=== PATIENT | female | born 1970 | race Caucasian/White ===

== ENCOUNTER 2017-03-08 06:08 | Emergency (ER) | payer MEDICAID ==
[2017-03-08 06:31] VITALS: BP 130/87
--- NOTE | 2017-03-08 07:21 | EDM.PDOC ---
ED HPI GENERAL MEDICAL PROBLEM - General Chief Complaint: General Stated Complaint: UNABLE TO SLEEP Time Seen by Provider: 03/08/17 07:01 Source of Information: Reports: Patient, Family, Old Records, RN Notes Reviewed History Limitations: Reports: No Limitations - History of Present Illness INITIAL COMMENTS - FREE TEXT/NARRATIVE: 46-year-old female presents emergency department today complaint of insomnia she states she has not been able to sleep for 30 days, she does have a extensive history of a variety medications that she has been on for sleep she does use benzodiazepines which she states they do not work like they used to and provide her no comfort. She follows with psychiatry out of [place] Dr. Singh has been on a variety of psychiatric medications as well suffers from posttraumatic stress disorder. Was recently started on prazosin she has taken 2 doses of this medication and states that she gets every side effect listed. Also of note during the interview she is drinking coffee Generalized Pain Score (Numeric/FACES): 2 - Related Data Allergies Allergy/AdvReac Type Severity Reaction Status Date / Time codeine Allergy Headache Verified 03/08/17 06:26 Home Meds: Home Meds Diazepam [Diazepam] 10 mg PO BEDTIME 10/23/13 [History] Hydrocortisone [Hydrocortisone] 1 appful TOP DAILY 10/23/13 [History] Ketoconazole [Nizoral 2% Shampoo] 1 applicful TOP DAILY 10/23/13 [History] clonazePAM [Clonazepam] 1 mg PO BID PRN 10/23/13 [History] Albuterol Sulfate [Proair Hfa] 1 - 2 puff IH Q4H PRN 06/19/14 [History] Prazosin HCl [Prazosin] 1 mg PO BEDTIME 03/08/17 [History] Past Medical History HEENT History: Reports: Allergic Rhinitis, Impaired Vision 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 Cardiovascular History: Reports: Arrhythmia, Heart Murmur, Other (See Below) Other Cardiovascular History: mitral valve prolapse syndrome Respiratory History: Reports: Asthma 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: Neurological History: Reports: Concussion, Migraines Psychiatric History: Reports: Panic Attack, Other (See Below) Other Psychiatric History: "break down", went to [facility], and stayed at [facility] Hematologic History: Reports: Anemia, Iron Deficiency Oncologic (Cancer) History: Reports: Other (See Below) Other Oncologic History: kidney cancer Dermatologic History: Reports: Psoriasis - Infectious Disease History Infectious Disease History: Reports: Chicken Pox, Influenza - Past Surgical History GI Surgical History: Reports: Colonoscopy Female Surgical History: Reports: Nephrectomy Other Oncologic Surgeries/Procedures: partial right nephrectomy Social & Family History - Tobacco Use Smoking Status *Q: Former Smoker Years of Tobacco use: 11 Used Tobacco, but Quit: Yes Month Tobacco Last Used: 20 yrs ago Second Hand Smoke Exposure: No - Caffeine Use Caffeine Use: Reports: Coffee - Alcohol Use Days Per Week of Alcohol Use: 4 Number of Drinks Per Day: 2 Total Drinks Per Week: 8 - Recreational Drug Use Recreational Drug Use: No Drug Use in Last 12 Months: No Recreational Drug Type: Reports: Marijuana/Hashish, Other (see below) Recreational Drug Use Frequency: Not Used In Over 1 Year ED ROS GENERAL - Review of Systems Review Of Systems: See Below Constitutional: Reports: Other (Insomnia) HEENT: Reports: No Symptoms Respiratory: Reports: No Symptoms Cardiovascular: Reports: No Symptoms GI/Abdominal: Reports: No Symptoms : Reports: No Symptoms ED EXAM, GENERAL - Physical Exam Exam: See Below Exam Limited By: No Limitations General Appearance: Alert, WD/WN, No Apparent Distress Respiratory/Chest: No Respiratory Distress Psychiatric: Normal Affect, Normal Mood, Other (She has an excuse for every medication that I propose every treatment that I propose only wants Ambien). No : Anxious, Depressed Mood, Flat Affect, Tearful Course - Vital Signs Last Recorded V/S: Last Vital Signs Temp 98.2 F 03/08/17 06:31 Pulse 95 03/08/17 06:31 Resp 20 03/08/17 06:31 BP 130/87 03/08/17 06:31 Pulse Ox 95 03/08/17 06:31 Departure - Departure Time of Disposition: 07:20 Disposition: Home, Self-Care 01 Condition: Fair Clinical Impression: Insomnia Qualifiers: Insomnia type: psychophysiologic Qualified Code(s): F51.04 - Psychophysiologic insomnia - Discharge Information Referrals: PCP,None [Primary Care Provider] - Additional Instructions: Use Ambien as needed for sleep please follow-up with your physician on Friday - Assessment/Plan Plan: Assessment Acuity = acute Site and laterality = insomnia Etiology = unclear etiology Manifestations = none none Location of injury = Home Lab values = [lists important lab values] Plan Granted prescription for 2 Ambien 5 mg 1 tab by mouth daily at bedtime, follow- up appointment with her psychiatrist on Friday Patient was in agreement with the plan all questions were answered, they were instructed to return to the emergency department or call for worsening symptoms. This note was dictated using [employer] voice recognition software please call with any questions.
== END 2017-03-08 07:40 | disposition home or self-care (01) ==
LOC: JP.ED 06:08
DX: F51.04 Psychophysiologic insomnia (principal); J45.909 Unspecified asthma, uncomplicated; Z79.899 Other long term (current) drug therapy; Z87.891 Personal history of nicotine dependence; Z88.5 Allergy status to narcotic agent
CPT/HCPCS: 99283

== ENCOUNTER 2019-09-19 18:31 | Emergency (ER) | payer MEDICAID ==
[2019-09-19 19:42] VITALS: BP 129/77; PULSE 16
--- NOTE | 2019-09-19 19:43 | EDM.PDOC ---
ED HPI GENERAL MEDICAL PROBLEM - General Chief Complaint: Genitourinary Problem Stated Complaint: BLADDER INFECTION Time Seen by Provider: 09/19/19 19:13 Source of Information: Reports: Patient History Limitations: Reports: No Limitations - History of Present Illness INITIAL COMMENTS - FREE TEXT/NARRATIVE: 49 y/o female with dysuria since this am. She denies fever, chills, N/v, or back pain. She has a history of UTIs. She is immunocompetent. 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 Hematologic History: Reports: Anemia, Iron Deficiency Oncologic (Cancer) History: Reports: Other (See Below) Other Oncologic History: kidney cancer Dermatologic History: Reports: Psoriasis - Infectious Disease History Infectious Disease History: Reports: Chicken Pox - Past Surgical History GI Surgical History: Reports: Colonoscopy Female Surgical History: Reports: Nephrectomy Other Oncologic Surgeries/Procedures: partial right nephrectomy Social & Family History - Tobacco Use Smoking Status *Q: Never Smoker - Caffeine Use Caffeine Use: Reports: Coffee ED ROS GENERAL - Review of Systems Review Of Systems: See Below Constitutional: Denies: Fever, Chills, Diaphoresis : Reports: Dysuria, Frequency Skin: Reports: No Symptoms ED EXAM, RENAL/ - Physical Exam Exam: See Below Exam Limited By: No Limitations General Appearance: Alert, WD/WN, No Apparent Distress Respiratory/Chest: No Respiratory Distress Cardiovascular: Regular Rate, Rhythm Neurological: Alert, Oriented Psychiatric: Normal Affect, Normal Mood Skin Exam: Warm, Dry Course - Vital Signs Text/Narrative:: She has a uncomplicated UTI. A UC is pending. She was started on SMZ/TMP for 7 days. Last Recorded V/S: Last Vital Signs Temp 36.6 C 09/19/19 19:34 Pulse 16 L 09/19/19 19:34 Resp 16 09/19/19 19:34 BP 129/77 09/19/19 19:34 Pulse Ox 97 09/19/19 19:34 - Orders/Labs/Meds Orders: Active Orders 24 hr Category Date Time Status CULTURE URINE [RM] Stat Lab 09/19/19 19:54 Ordered Labs: Laboratory Tests 09/19/19 Range/Units 19:20 Urine Color Yellow (YELLOW) Urine Appearance Slightly cloudy A (CLEAR) Urine pH 7.0 (5.0-8.0) Ur Specific [place] 1.025 (1.008-1.030) Urine Protein Negative (NEGATIVE) mg/dL Urine Glucose (UA) Negative (NEGATIVE) mg/dL Urine Ketones Negative (NEGATIVE) mg/dL Urine Occult Blood Large H (NEGATIVE) Urine Nitrite Positive H (NEGATIVE) Urine Bilirubin Negative (NEGATIVE) Urine Urobilinogen 0.2 (0.2-1.0) EU/dL Ur Leukocyte Esterase Large H (NEGATIVE) Urine RBC 10-20 H (0-5) Urine WBC 10-20 H (0-5) Ur Epithelial Cells Few Amorphous Sediment Many Urine Bacteria Moderate Urine Mucus Not seen Departure - Departure Time of Disposition: 19:55 Disposition: Home, Self-Care 01 Condition: Good Clinical Impression: Cystitis - Discharge Information Referrals: Sariah Tobias PA [Primary Care Provider] - Forms: ED Department Discharge Additional Instructions: start SMZ/TMP DS BID for 7 days. UC pending. Sepsis Event Note (ED) - Evaluation Sepsis Screening Result: No Definite Risk - Focused Exam Vital Signs: Vital Signs Temp Pulse Resp BP Pulse Ox 09/19/19 19:34 36.6 C 16 L 16 129/77 97 09/19/19 19:06 36.6 C 16 L 16 129/77 97 - My Orders Last 24 Hours: My Active Orders 09/19/19 19:54 CULTURE URINE [RM] Stat - Assessment/Plan Last 24 Hours: My Active Orders 09/19/19 19:54 CULTURE URINE [RM] Stat
[2019-09-19] MEDS ORDERED: Phenazopyridine 95 MG Tab ONE (20:05)
[2019-09-19] MEDS ORDERED: Phenazopyridine 95 MG Tab PO ONE (20:07)
== END 2019-09-19 20:10 | disposition home or self-care (01) ==
LOC: JP.ED 18:31
DX: N30.90 Cystitis, unspecified without hematuria (principal); J45.909 Unspecified asthma, uncomplicated; Z88.5 Allergy status to narcotic agent
CPT/HCPCS: 81001; 87086; 87088; 87186; 99283; A9270

== ENCOUNTER 2022-03-05 08:41 | Day surgery (SDC) | payer MEDICAID ==
[2022-03-05] MEDS ORDERED: Lactated Ringers 1,000 ML IV SCH (09:00)
[2022-03-05] MEDS ORDERED: Propofol 200 MG/20 ML SDV ONE (10:02)
[2022-03-05] MEDS ORDERED: fentaNYL 50 MCG/ML SDV ONE (10:05)
[2022-03-05] MEDS ORDERED: Midazolam 1 MG/ML 2 ML SDV ONE (10:05)
[2022-03-05 11:58] VITALS: PULSE 71
[2022-03-05 12:03] VITALS: BP 118/48
== END 2022-03-05 12:06 | disposition home or self-care (01) ==
LOC: JP.SDS 08:41
PROVIDERS: ATTEND Family Medicine
DX: Z12.11 Encounter for screening for malignant neoplasm of colon (principal); F43.10 Post-traumatic stress disorder, unspecified; F41.9 Anxiety disorder, unspecified; Z79.899 Other long term (current) drug therapy; Z88.5 Allergy status to narcotic agent
CPT/HCPCS: 45378; J2250; J2704; J3010; J7120

== ENCOUNTER 2023-04-25 05:02 | Emergency (ER) | payer MEDICAID, OTHER ==
[2023-04-25 05:28] VITALS: BP 144/86; PULSE 74
[2023-04-25] MEDS ORDERED: Baclofen 10 MG Tab PO ONE (06:00)
[2023-04-25] MEDS ORDERED: Ketorolac 30 MG/ML SDV IM ONE (06:01)
[2023-04-25] MEDS ORDERED: Acetaminophen/oxyCODONE 325-5 MG Tab PO ONE (06:01)
[2023-04-25] MEDS ORDERED: HYDROmorphone 0.5 MG/0.5 ML Syringe IM ONE (07:06)
== END 2023-04-25 07:48 | disposition home or self-care (01) ==
LOC: JP.ED 05:02
DX: M54.50 Low back pain, unspecified (principal); K21.9 Gastro-esophageal reflux disease without esophagitis; J45.909 Unspecified asthma, uncomplicated; Z86.16 Personal history of COVID-19; Z79.899 Other long term (current) drug therapy; Z88.5 Allergy status to narcotic agent; Z88.8 Allergy status to other drugs, medicaments and biological substances; Z90.710 Acquired absence of both cervix and uterus
CPT/HCPCS: 72100; 96372; 99283; A9270; J1170; J1885